=== PATIENT | male | born 1990 | race Caucasian/White ===

== ENCOUNTER 2021-09-02 13:23 | Emergency (ER) | payer OTHER ==
[~2021-09-02] VITALS: Ht 175.3 cm; Wt 75.1 kg
[2021-09-02 13:45] VITALS: BP 138/88
--- NOTE | 2021-09-02 13:48 | NUR ---
PT AMB TO BED 6.
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
--- NOTE | 2021-09-02 14:12 | NUR ---
PT TAKEN TO XRAY VIA WHEELCHAIR
[2021-09-02] MEDS ORDERED: IBUP200C97 PO (15:06)
[2021-09-02] MEDS ORDERED: LID5T TP (15:06)
[2021-09-02 15:43] VITALS: BP 138/88
--- NOTE | 2021-09-02 15:43 | NUR ---
Patient discharged with v/s stable. Written and verbal after care instructions given and explained. Patient alert, oriented and verbalized understanding of instructions. Ambulatory with steady gait. All questions addressed prior to discharge. ID band removed. Patient advised to follow up with PMD. Rx of IBUPROFEN, LIDOCAINE PATCH given. Patient educated on indication of medication including possible reaction and side effects. Opportunity to ask questions provided and answered.
== END 2021-09-02 15:43 | disposition home or self-care (01) ==
LOC: MED 13:23
DX: S20.211A Contusion of right front wall of thorax, initial encounter (principal); Z79.899 Other long term (current) drug therapy; V87.8XXA Person injured in other specified noncollision transport accidents involving motor vehicle (traffic), initial encounter; Y93.89 Activity, other specified; Y92.89 Other specified places as the place of occurrence of the external cause; Y99.8 Other external cause status
CPT/HCPCS: 71101; 99283